=== PATIENT | male | born 1940 | race Caucasian/White ===

== ENCOUNTER 2016-12-28 10:11 | Day surgery (SDC) | payer MEDICARE ==
--- NOTE | ~2016-12-28 | EGD ---
EGD REPORT [facility] [address] [address] NAME: TRISTON ANTHONY : [birth year] STATUS : REG [facility] [place] PAT#: [id number] AGE: 76 ADM/REG DATE : 12/28/16 MR#: [id number] REPORT SERV DATE: 12/28/16 DICTATED BY: ABI GIBSON DATE: 12/28/16 REPORT STATUS : Draft TRANSCRIBED BY: [employer] DATE: 12/28/16 [facility] Patient Name: Triston Anthony Date of : 1940 Attending MD: ABI GIBSON, Procedure Date No Time: 12/28/2016 Procedure: Upper EUS Indications: Suspected pancreatic neoplasm Referring MD: ARNIE BRENNAN III, MD, CHAU SORENSEN Medicines: Monitored Anesthesia Care Complications: No immediate complications. Estimated blood loss: None. Procedure: Pre-Anesthesia Assessment: - ASA Grade Assessment: III - A patient with severe systemic disease. After obtaining informed consent, the endoscope was passed under direct vision. Throughout the procedure, the patient's blood pressure, pulse, and oxygen saturations were monitored continuously. The Endoscope was introduced through the mouth, and advanced to the second part of duodenum. The GIF H190 [id number] was introduced through the mouth, and advanced to the second part of duodenum. Findings: Endoscopic Finding : The examined esophagus was endoscopically normal. The entire examined stomach was endoscopically normal. The examined duodenum was endoscopically normal. The cardia and gastric fundus were normal on retroflexion. Endosonographic Finding : An anechoic lesion suggestive of a cyst was identified in the pancreatic body. The lesion measured 21 mm by 15 mm in maximal cross-sectional diameter. There were 2 compartments thinly septated. There was no associated mass. There was no internal debris within the fluid-filled cavity. The pancreatic duct had a normal endosonographic appearance in the entire pancreas. There was no sign of significant endosonographic abnormality in the common bile duct. The gallbladder was not seen. There was no sign of significant endosonographic abnormality in the examined duodenum. Endosonographic images of the stomach were unremarkable. There was no sign of significant endosonographic abnormality in the esophagus. No lymphadenopathy seen. EGD REPORT [address] [address] NAME: TRISTON ANTHONY : [birth year] STATUS : [place] [facility] [place] PAT#: [id number] AGE: 76 ADM/REG DATE : 12/28/16 MR#: [id number] REPORT SERV DATE: 12/28/16 DICTATED BY: ABI GIBSON DATE: 12/28/16 REPORT STATUS : Draft TRANSCRIBED BY: [employer] DATE: 12/28/16 Impression: - Normal esophagus. - Normal stomach. - Normal examined duodenum. - A 21 mm by 15 mm cystic lesion was seen in the pancreatic body. - The pancreatic duct had a normal endosonographic appearance in the entire pancreas. - There was no sign of significant pathology in the common bile duct. - There was no sign of significant pathology in the examined duodenum. - Endosonographic images of the stomach were unremarkable. - There was no sign of significant pathology in the esophagus. Recommendation: - Await cytology results and await tumor markers. Procedure Code(s): --- Professional --- 23627, Esophagogastroduodenoscopy, flexible, transoral; with endoscopic ultrasound examination, including the esophagus, stomach, and either the duodenum or a surgically altered stomach where the jejunum is examined distal to the anastomosis Diagnosis Code(s): --- Professional --- K86.2, Cyst of pancreas CPT copyright 2013 [employer]. All rights reserved. The codes documented in this report are preliminary and upon health information coder review may be revised to meet current compliance requirements. ABI PAIGE, 12/28/2016 12:47 PM Number of Addenda: 0 Note Initiated On: 12/28/2016 11:55 AM Scope Withdrawal Time 0 hours 0 minutes 0 seconds [address] [id number]
--- NOTE | ~2016-12-28 | EGD ---
EGD REPORT [facility] [address] [address] NAME: TRISTON ANTHONY : [birth year] STATUS : REG [facility] PAT#: [id number] AGE: 76 ADM/REG DATE : 12/28/16 MR#: [id number] REPORT SERV DATE: 12/28/16 DICTATED BY: ABI GIBSON DATE: 12/28/16 REPORT STATUS : Draft TRANSCRIBED BY: [employer] DATE: 12/28/16 [facility] Patient Name: Triston Anthony Date of : 1940 Attending MD: ABI GIBSON, Procedure Date No Time: 12/28/2016 Procedure: Upper EUS Indications: Suspected pancreatic neoplasm Referring MD: ARNIE BRENNAN III, MD, HCAU SORENSEN Medicines: Monitored Anesthesia Care Complications: No immediate complications. Estimated blood loss: None. Procedure: Pre-Anesthesia Assessment: - ASA Grade Assessment: III - A patient with severe systemic disease. After obtaining informed consent, the endoscope was passed under direct vision. Throughout the procedure, the patient's blood pressure, pulse, and oxygen saturations were monitored continuously. The Endoscope was introduced through the mouth, and advanced to the second part of duodenum. The GIF [id number] was introduced through the mouth, and advanced to the second part of duodenum. Findings: Endoscopic Finding : The examined esophagus was endoscopically normal. The entire examined stomach was endoscopically normal. The examined duodenum was endoscopically normal. The cardia and gastric fundus were normal on retroflexion. Endosonographic Finding : An anechoic lesion suggestive of a cyst was identified in the pancreatic body. The lesion measured 21 mm by 15 mm in maximal cross-sectional diameter. There were 2 compartments thinly septated. There was no associated mass. There was no internal debris within the fluid-filled cavity. The pancreatic duct had a normal endosonographic appearance in the entire pancreas. There was no sign of significant endosonographic abnormality in the common bile duct. The gallbladder was not seen. There was no sign of significant endosonographic abnormality in the examined duodenum. Endosonographic images of the stomach were unremarkable. There was no sign of significant endosonographic abnormality in the esophagus. No lymphadenopathy seen. EGD REPORT [address] [address] NAME: TRISTON ANTHONY : [birth year] STATUS : REG [facility] PAT#: [id number] AGE: 76 ADM/REG DATE : 12/28/16 MR#: [id number] REPORT SERV DATE: 12/28/16 DICTATED BY: ABI GIBSON DATE: 12/28/16 REPORT STATUS : Draft TRANSCRIBED BY: [employer] DATE: 12/28/16 Impression: - Normal esophagus. - Normal stomach. - Normal examined duodenum. - A 21 mm by 15 mm cystic lesion was seen in the pancreatic body. - The pancreatic duct had a normal endosonographic appearance in the entire pancreas. - There was no sign of significant pathology in the common bile duct. - There was no sign of significant pathology in the examined duodenum. - Endosonographic images of the stomach were unremarkable. - There was no sign of significant pathology in the esophagus. Recommendation: - Await cytology results and await tumor markers. Procedure Code(s): --- Professional --- 59024, Esophagogastroduodenoscopy, flexible, transoral; with endoscopic ultrasound examination, including the esophagus, stomach, and either the duodenum or a surgically altered stomach where the jejunum is examined distal to the anastomosis Diagnosis Code(s): --- Professional --- K86.2, Cyst of pancreas CPT copyright 2013 [employer]. All rights reserved. The codes documented in this report are preliminary and upon impregnating tank operator review may be revised to meet current compliance requirements. ABI PAIGE, 12/28/2016 12:47 PM Number of Addenda: 0 Note Initiated On: 12/28/2016 11:55 AM Scope Withdrawal Time 0 hours 0 minutes 0 seconds [address] [id number]
[2016-12-28 18:26] LABS: BD FL SOURCE (NOT ORD) PANCREATIC CYST FNA
== END 2016-12-28 23:59 | disposition home or self-care (01) ==
LOC: DMU 10:11
PROVIDERS: Internal Medicine Gastroenterology
PROC: 0DJ08ZZ Inspection of Upper Intestinal Tract, Via Natural or Artificial Opening Endoscopic (ICD-10-PCS; principal; 2016-12-28 11:30)
PROC: BD41ZZZ Ultrasonography of Esophagus (ICD-10-PCS; 2016-12-28 11:30)
DX: K85.90 Acute pancreatitis without necrosis or infection, unspecified (principal); K86.2 Cyst of pancreas; I10 Essential (primary) hypertension; E11.9 Type 2 diabetes mellitus without complications
CPT/HCPCS: 82378; 82962; 88173; 88305; C1725; J1956